=== PATIENT | male | born 1990 | race Caucasian/White ===

== ENCOUNTER 2018-12-22 16:47 | Emergency (ER) | payer MEDICAID, OTHER ==
[~2018-12-22] VITALS: Ht 175.3 cm; Wt 86.4 kg
[~2018-12-22 16:47] MED LIST: NO HOME MEDS
[2018-12-22 17:15] LABS: CLARITY,URINE CLEAR (Clear); COLOR,URINE STRAW (Yellow); GLUCOSE, URINE NEGATIVE (Neg); KETONES,URINE NEGATIVE (Neg); LEUKOCYTE ESTERASE ,URINE NEGATIVE (Neg); NITRITES, URINE NEGATIVE (Neg); OCCULT BLOOD,URINE NEGATIVE (Neg); PH,URINE 5.5 (4.8-8.0); PROTEIN,URINE NEGATIVE (Neg); UROBILINOGEN,URINE 0.2 E.U/dL (0.2-1.0)
[2018-12-22 17:24] LABS: URINE AMPHETAMINE SCREEN NEGATIVE (Neg); URINE BARBITUATE SCREEN NEGATIVE (Neg); URINE BENZODIAZEPINES SCREEN NEGATIVE (Neg); URINE CANNABINOID SCREEN NEGATIVE (Neg); URINE COCAINE SCREEN NEGATIVE (Neg); URINE METHADONE SCREEN NEGATIVE (Neg); URINE OPIATE SCREEN NEGATIVE (Neg); URINE PHENCYCLIDINE SCREEN NEGATIVE (Neg)
[2018-12-22 17:28] LABS: UA COLLECTION TYPE CLN CATCH MIDSTREAM
--- NOTE | 2018-12-22 17:38 | NUR ---
breaking primary RN, pt is in bed supine, he is quietly speaking to female in his er room, will continue to monitor
--- NOTE | 2018-12-22 18:04 | NUR ---
PER PATIENT REQUESTED I ATTEMPTED TO CALL HIS BOSS AT [employer] [employer] [phone]. SIMPLE MESSAGE TO CALL ME LEFT.
--- NOTE | 2018-12-22 18:10 | NUR ---
PATIENT'S BOSS JCARLOS ARRIAGA CALLED BACK. I TOLD HIM THAT MR KELLEY IS IN THE HOSPITAL AND THAT I DO NOT KNOW IF HE WILL BE RELEASED BEFORE HIS WORK DAY TOMORROW.
[2018-12-22 18:28] LABS: BASOPHILS % (AUTO) 0.6 % (0-1); EOSINOPHILS # (AUTO) 0.1 X10'3 (0-0.9); EOSINOPHILS % (AUTO) 1.7 % (0-6); HEMATOCRIT 45.4 % (42.0-52.0); HEMOGLOBIN 15.9 g/dl (14.0-17.9); LYMPHOCYTES # (AUTO) 3.1 X10'3 (1.1-4.8); LYMPHOCYTES % (AUTO) 42.3 % (21-51); MEAN CORPUSCULAR HEMOGLOBIN 32.9 PG (27.0-31.0); MONOCYTES # (AUTO) 0.4 X10'3 (0-0.9); MONOCYTES % (AUTO) 6.1 % (2-12); NEUTROPHILS # (AUTO) 3.6 X10'3 (1.8-7.7); NEUTROPHILS % (AUTO) 49.3 % (42-75); PLATELET COUNT 202 X10'3 (140-440); RED BLOOD COUNT 4.82 X10'6 (4.70-6.10); RED CELL DISTRIBUTION WIDTH 13.3 % (11.5-14.5); WHITE BLOOD COUNT 7.3 X10'3 (4.5-11.0)
--- NOTE | 2018-12-22 18:35 | NUR ---
Patient's belonging has been logged and locked up in ambulance bay lockers. Patient agreed to sister takeing his wallet and cell phone home with her.
[2018-12-22 18:45] LABS: ALANINE AMINOTRANSFERASE 33 U/L (12-78); ALBUMIN 4.3 G/DL (3.4-5.0); ALBUMIN/GLOBULIN RATIO 1.3 (1.1-1.5); ALKALINE PHOSPHATASE 63 IU/L (46-116); ANION GAP 12 (8-16); ASPARTATE AMINO TRANSFERASE 20 U/L (10-37); BILIRUBIN,TOTAL 0.5 MG/DL (0.1-1.0); BLOOD UREA NITROGEN 8 MG/DL (7-18); BUN/CREATININE RATIO 8.9 (5.4-32.0); CALCIUM 8.5 MG/DL (8.5-10.1); CHLORIDE 110 MMOL/L (99-107); GLUCOSE 94 MG/DL (70-104); POTASSIUM 3.9 MMOL/L (3.5-5.1); SODIUM 147 MMOL/L (135-145); TOTAL CARBON DIOXIDE 25.5 MMOL/L (24-32); TOTAL PROTEIN 7.6 G/DL (6.4-8.2); eGFR > 90 ML/MIN
[2018-12-22] MEDS ORDERED: nicotine 21mg patch - 24 hr TD ONE (18:55)
[2018-12-22 18:59] LABS: ETHANOL 0.211 GM/DL (0.0-0.010)
--- NOTE | 2018-12-22 19:57 | NUR ---
Packet faxed to [facility]. Confirmed receipt of packet with Ana @ [facility] [place] office.
[2018-12-22] MEDS ORDERED: LORazepam 1 MG tablet PO ONE (20:20)
--- NOTE | 2018-12-22 20:25 | NUR ---
ETOH male, alert and oriented X4. Acute anxiety. S/P S/I attempt by CO poisioning. Patient states lack of sleep, ETOH, marital problems.. Patient is labile, he is however cooperative with staff at this time.
--- NOTE | 2018-12-22 20:34 | NUR ---
Patient is awake and well oriented. He presents with acute anxiety. This patient was told by the [facility] RN that he would be on a hold until at least the am because of his blood alcohol. This patient clenches his fists, he expresses his want to leave. Patient 5150 status is explained. Patient states he hasn't slept in nearly five days as his girlfrient left him and took their children. Orders recieved for Ativan 2 mg PO now along with Trazadone 50 mg MRX1 PRN in one hour. The patient was compliant with medications. Patient is in direct view from the nursing station. This RN will effect a more in debth interview when calm or rested. Close observation will be continued for patient and staff safety.
[2018-12-22] MEDS ORDERED: traZODone 50mg tablet PO SCH (21:00)
--- NOTE | 2018-12-22 23:04 | NUR ---
Patient is now sleeping, low fowlers position in bed. In direct view from nursing station.
[2018-12-23 05:30] VITALS: BP 128/77
--- NOTE | 2018-12-23 05:44 | NUR ---
Patient is awake and well oriented now. Patient slept well last NOC. Patient stills complains of anxiety but he is speaking calmly, he is also cooperative with staff. [facility] will eval later this morning.
--- NOTE | 2018-12-23 06:48 | NUR ---
Patient sleeping soundly on left side. No distress observed. Continue to monitor.
[2018-12-23] MEDS ORDERED: LORazepam 1 MG tablet PO PRN (07:00)
--- NOTE | 2018-12-23 07:22 | NUR ---
GIVING PRIMARY RN A BREAK. PT. IS SOUNDLY SLEEPING ON BACK. PT. APPEARS TO BE IN NO DISTRESS. WILL CONTINUE TO MONITOR.
--- NOTE | 2018-12-23 07:38 | NUR ---
Patient is anxious. RN gave patient Ativan 1 mg. Patient states he got 2 mg last night and Trazodone and that bearly worked. Continue to monitor.
== END 2018-12-23 09:45 | disposition home or self-care (01) ==
LOC: ER 16:47 → EEVIPCON 16:47 → ER 12-23 09:45
DX: R45.851 Suicidal ideations (principal)
CPT/HCPCS: 36415; 80053; 80305; 80320; 81003; 84443; 85025; 99284; 99285

== ENCOUNTER 2019-08-22 06:43 | Emergency (ER) | payer MEDICAID, OTHER ==
[~2019-08-22] VITALS: Ht 175.3 cm; Wt 86.4 kg
--- NOTE | 2019-08-22 06:56 | NUR ---
Pt ambulatory to room without assistance. Changed into gown, placed on monitor, on gurney.
[2019-08-22] MEDS ORDERED: normal saline 1000ML IV soln IVB ONE ×3 (07:00→08:40)
[2019-08-22 07:29] LABS: BASOPHILS # (AUTO) 0.1 X10'3 (0-0.2); EOSINOPHILS # (AUTO) 0.1 X10'3 (0-0.9); EOSINOPHILS % (AUTO) 1.2 % (0-6); HEMATOCRIT 48.6 % (42.0-52.0); HEMOGLOBIN 17.4 g/dl (14.0-17.9); LYMPHOCYTES # (AUTO) 1.8 X10'3 (1.1-4.8); LYMPHOCYTES % (AUTO) 28.6 % (21-51); MEAN CORPUSCULAR HEMOGLOBIN 35.5 PG (27.0-31.0); MEAN CORPUSCULAR HGB CONC 35.7 g/dL (33.0-36.5); MEAN CORPUSCULAR VOLUME 99.4 FL (78-98); MEAN PLATELET VOLUME 7.5 FL (7.4-10.4); MONOCYTES # (AUTO) 0.8 X10'3 (0-0.9); MONOCYTES % (AUTO) 12.6 % (2-12); NEUTROPHILS # (AUTO) 3.5 X10'3 (1.8-7.7); NEUTROPHILS % (AUTO) 56.6 % (42-75); PLATELET COUNT 166 X10'3 (140-440); RED BLOOD COUNT 4.89 X10'6 (4.70-6.10); RED CELL DISTRIBUTION WIDTH 13.5 % (11.5-14.5); WHITE BLOOD COUNT 6.2 X10'3 (4.5-11.0)
--- NOTE | 2019-08-22 07:29 | NUR ---
UA obtained. Sent to lab.
[2019-08-22 07:46] LABS: ALANINE AMINOTRANSFERASE 68 U/L (12-78); ALBUMIN 4.4 G/DL (3.4-5.0); ALBUMIN/GLOBULIN RATIO 1.3 (1.1-1.5); ANION GAP 14 (8-16); ASPARTATE AMINO TRANSFERASE 46 U/L (10-37); BILIRUBIN,TOTAL 1.5 MG/DL (0.1-1.0); BLOOD UREA NITROGEN 28 MG/DL (7-18); CALCIUM 8.6 MG/DL (8.5-10.1); CHLORIDE 96 MMOL/L (99-107); CREATINE KINASE 902 U/L (39-308); CREATININE 1.75 MG/DL (0.60-1.10); GLUCOSE 85 MG/DL (70-104); SODIUM 134 MMOL/L (135-145); TOTAL CARBON DIOXIDE 23.6 MMOL/L (24-32); TOTAL PROTEIN 7.8 G/DL (6.4-8.2); eGFR 47 ML/MIN
[2019-08-22 07:52] LABS: POTASSIUM 2.7 MMOL/L (3.5-5.1)
[2019-08-22 07:53] LABS: CLARITY,URINE CLEAR (Clear); COLOR,URINE YELLOW (Yellow); GLUCOSE, URINE NEGATIVE (Neg); KETONES,URINE TRACE mg/dl (Neg); LEUKOCYTE ESTERASE ,URINE NEGATIVE (Neg); NITRITES, URINE NEGATIVE (Neg); OCCULT BLOOD,URINE SMALL (Neg); PH,URINE 5.5 (4.8-8.0); PROTEIN,URINE 30 mg/dl (Neg); UROBILINOGEN,URINE 0.2 E.U/dL (0.2-1.0)
[2019-08-22] MEDS ORDERED: potassium Cl 20 mEq SR tablet PO ONE (07:55)
[2019-08-22] MEDS ORDERED: potassium Cl 10 mEq/100mL bag IV ONE (07:55)
[2019-08-22 08:00] LABS: ALKALINE PHOSPHATASE 52 IU/L (46-116)
[2019-08-22 08:04] LABS: UA COLLECTION TYPE VOIDED
[2019-08-22 08:06] LABS: BACTERIA,URINE NONE SEEN /HPF (Neg); HYALINE CASTS 0-3 /LPF (NEGATIVE); MUCUS STRANDS FEW /LPF (Neg); RBC,URINE 0-2 /HPF (0-2); SQUAMOUS EPITHELIAL CELL,UR NONE SEEN /LPF (FEW); URIC ACID CRYSTALS FEW /HPF (NEGATIVE); WBC,URINE 0-4 /HPF (0-4)
[2019-08-22 08:08] LABS: URINE AMPHETAMINE SCREEN NEGATIVE (Neg); URINE BARBITUATE SCREEN NEGATIVE (Neg); URINE BENZODIAZEPINES SCREEN NEGATIVE (Neg); URINE CANNABINOID SCREEN NEGATIVE (Neg); URINE COCAINE SCREEN NEGATIVE (Neg); URINE METHADONE SCREEN NEGATIVE (Neg); URINE OPIATE SCREEN NEGATIVE (Neg); URINE PHENCYCLIDINE SCREEN NEGATIVE (Neg)
--- NOTE | 2019-08-22 09:42 | NUR ---
Pt reports feeling better. Fluids cont infusing. Labs redrawn.
[2019-08-22 10:28] LABS: ALANINE AMINOTRANSFERASE 60 U/L (12-78); ALBUMIN/GLOBULIN RATIO 1.4 (1.1-1.5); ALKALINE PHOSPHATASE 44 IU/L (46-116); ANION GAP 6 (8-16); ASPARTATE AMINO TRANSFERASE 42 U/L (10-37); BILIRUBIN,TOTAL 1.1 MG/DL (0.1-1.0); BLOOD UREA NITROGEN 25 MG/DL (7-18); BUN/CREATININE RATIO 16.2 (5.4-32.0); CALCIUM 8.3 MG/DL (8.5-10.1); CHLORIDE 103 MMOL/L (99-107); CREATINE KINASE 774 U/L (39-308); CREATININE 1.54 MG/DL (0.60-1.10); GLUCOSE 75 MG/DL (70-104); POTASSIUM 4.2 MMOL/L (3.5-5.1); SODIUM 138 MMOL/L (135-145); TOTAL CARBON DIOXIDE 29.2 MMOL/L (24-32); TOTAL PROTEIN 6.9 G/DL (6.4-8.2); eGFR 54 ML/MIN
[2019-08-22 11:05] VITALS: BP 124/67
--- NOTE | 2019-08-22 11:08 | NUR ---
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 james aware and stated will see about dc soon. will continue to monitor.
== END 2019-08-22 11:19 | disposition home or self-care (01) ==
LOC: ER 06:43
DX: E86.0 Dehydration (principal); R42 Dizziness and giddiness; R53.83 Other fatigue; R11.2 Nausea with vomiting, unspecified; N17.9 Acute kidney failure, unspecified; E87.6 Hypokalemia; Z72.89 Other problems related to lifestyle
CPT/HCPCS: 36415; 80053; 80305; 81001; 82550; 83735; 85025; 96360; 96361; 99285; J3480; J7030

== ENCOUNTER 2021-04-25 13:30 | Emergency (ER) | payer SELFPAY ==
[~2021-04-25] VITALS: Ht 175.3 cm; Wt 81.8 kg
[2021-04-25 14:05] VITALS: BP 154/85
[2021-04-25] MEDS: proparacaine 0.5% ophthalmic drops 15ml EACHEYE ONE (14:23)
[2021-04-25] MEDS ORDERED: TOBR5DRO2 LEFTEYE (16:55)
== END 2021-04-25 17:16 | disposition home or self-care (01) ==
LOC: ER 13:31
DX: S05.32XA Ocular laceration without prolapse or loss of intraocular tissue, left eye, initial encounter (principal); X58.XXXA Exposure to other specified factors, initial encounter; Y93.89 Activity, other specified; Y92.89 Other specified places as the place of occurrence of the external cause; Y99.8 Other external cause status
CPT/HCPCS: 70486; 99284

== ENCOUNTER 2022-01-28 12:15 | Emergency (ER) | payer MEDICAID ==
[~2022-01-28] VITALS: Ht 177.8 cm; Wt 81.0 kg
[~2022-01-28 12:15] MED LIST changes: +TOBR5DRO2 LEFTEYE
[2022-01-28 12:46] VITALS: BP 148/92
[2022-01-28] MEDS ORDERED: PENI500T2 PO (14:19)
== END 2022-01-28 15:01 | disposition home or self-care (01) ==
LOC: ER 12:16
DX: K04.7 Periapical abscess without sinus (principal)
CPT/HCPCS: 41800; 99284; A6449

== ENCOUNTER 2024-07-20 11:27 | Emergency (ER) | payer MEDICAID, OTHER ==
[~2024-07-20] VITALS: Ht 177.8 cm; Wt 97.7 kg
[2024-07-20 11:34] VITALS: BP 154/112; PULSE 79; RESP 18; O2SAT 99
[2024-07-20] MEDS: proparacaine 0.5% ophthalmic drops 15ml LEFTEYE ONE (12:07)
--- NOTE | 2024-07-20 12:34 | Physician Documentation ---
History of Present Illness ~ Chief Complaint: Eye Pain Stated Complaint: L EYE PAIN Time Seen by MD: 11:57 Primary Medical Doctor: [facility] HPI This 34-year-old male who reports that he had injury to the left eye when he was living in order again in the fall of 2023. Evidently, he was seen at that time and evaluated and found to have corneal abrasions which were treated with topi elvin antibiotics. However, he notes that he has had recurrent issues with pain, most present in the morning upon 1st awakening. No recent injury or foreign body concerns. Medication Reconciliation Allergies: Coded Allergies: No Known Allergies (Unverified , 08/25/09) Scheduled Tobramycin Sulfate/Dexameth (Tobradex Eye Drops), 1 DROP LEFTEYE Q6H Miscellaneous Medications Home Med List (No Home Medications), (Reported) Past Medical History Past Medical History: No Pertinent History Past Surgical History: no surgical history Alcohol Use: Occasionally Drug Use: none Lives In: Home Occupation: employed Review of Systems ROS As stated above in the HPI, otherwise all systems are reviewed and negative. Physical Exam Vital Signs: Temperature: 98.4, Source: Oral, Heart Rate: 79, Respiratory Rate: 18, BP: 154/112, Pulse Oximetry: 99, Weight: 97.730 Physical Exam General: Alert, no apparent distress. HEENT: PERRL, EOMI, no injection, moist mucous membranes. Normal exam of the left eye. Neck: Full range of motion. Respiratory: Lungs clear, no respiratory distress. Chest: No accessory muscle use. Cardiovascular: Regular rate and rhythm, no murmurs. Gastrointestinal: Soft, nontender, nondistended. Bowels sounds present. Extremities: Normal range of motion, no deformity. Neurologic: Oriented x4. Psychiatric: Normal mood and affect. Skin: Normal color, warm and dry. No edema, no ecchymosis. Procedures Procedures Fluorescein stain and black light exam of left eye. No foreign body, no corneal abrasion. Progress Results/Orders Results/Orders Orders - NENA SILVERIO NP Eye Procedure (07/20/24 11:57) Visual Acuity (07/20/24 11:57) Completed Orders - NENA SILVERIO NP Proparacaine Ophth Solution (Alcaine Oph (07/20/24 12:00) Vital Signs 07/20/24 07/20/24 11:34 12:47 Temp 98.4 98.4 Pulse 79 Resp 18 B/P (MAP) 154/112 Pulse Ox 99 Medical Decision Making Eye Diff. Dx: Considerations: Include: Foreign body-conjuctiva, Foreign body- corneal, Foreign body-intraocular, Foreign body-lid, Globe rupture, Hordeolum, Iritis, Orbital cellulitis, Retinal artery occulsion, Retinal vein occlusion, Vitreous hemorrhage Additional Comment Fluorescein stain with black light unremarkable. No foreign body, no corneal abrasion. Departure Time of Disposition: 12:32 Disposition: 01 HOME / SELF CARE / HOMELESS Impression: Primary Impression: Left eye pain Discharge Instructions: Dry Eye Additional Instructions: No corneal abrasion seen today but it is suspected that you've got some chronic issues due to the multiple reported injuries to the eye. See an eye doctor soon. OK to return to work tomorrow with no restrictions. Departure Forms: Excuse form Work or School Excused From: Work Excuse beginning now through the following date: July 21, 2024 Referrals: NO PRIMARY CARE PROVIDER (PCP) Education Educated: Patient Educated regarding: diagnosis, treatment, prognosis, need for follow up Signature Scribe Signature: No scribe Attestation: The note accurately reflects work and decisions made by me.Nena Alan NP 07/20/24 12:53 NENA SILVERIO NP July 20, 2024 12:34
[2024-07-20 12:47] VITALS: TEMP 98.4
== END 2024-07-20 12:50 | disposition home or self-care (01) ==
LOC: ER 11:28
DX: H57.12 Ocular pain, left eye (principal)
CPT/HCPCS: 99283